=== PATIENT | male | born 1970 | race Caucasian/White ===

== ENCOUNTER 2019-11-13 07:11 | Outpatient (CLI) | payer BC, OTHER ==
[2019-11-13 16:08] LABS: #Basophils 0.1 thou/uL (0.0-0.2); #Eosinphils 0.1 thou/uL (0.0-0.7); #Lymphocytes 1.6 thou/uL (1.20-3.40); #Monocytes 0.5 thou/uL (0.11-0.59); #Neutrophils 5.8 thou/uL (1.40-6.50); %Basophils 0.6 % (0.0-1.0); %Eosinophils 1.3 % (0.0-10.0); %Lymphocytes 19.7 % (21.0-51.0); %Monocytes 5.9 % (0.0-10.0); %Neutrophils 72.5 % (42.0-75.0); Hemoglobin 16.5 g/dL (14.0-18.0); Mean Corpuscular HGB CONC 34.6 g/dL (32.0-36.0); Mean Corpuscular Volume 92.7 fL (78.0-98.0); Mean Platelet Volume 7.1 fL (7.4-10.4); Platelet Count 315 thou/uL (130-400); RBC Distribution Width 11.5 % (11.5-14.5); Red Blood Cell (RBC) Count 5.15 mill/uL (4.70-6.10); White Blood Cell (WBC) Count 8.1 thou/uL (4.8-10.8)
[2019-11-13 16:23] LABS: Anion Gap 14 mmol/L (10-20); BUN (Urea Nitrogen) 17 mg/dL (8.9-20.6); Calc. Creatinine Clearance 0 mL/min (70-130); Calcium 9.7 mg/dL (7.8-10.44); Carbon Dioxide 27 mmol/L (22-29); Chloride 104 mmol/L (98-107); Estimated GFR-MDRD 90; Glucose 84 mg/dL (70-105); Potassium 3.9 mmol/L (3.5-5.1); Sodium 141 mmol/L (136-145)
[2019-11-14 14:54] LABS: SARS-CoV-2 MS2 Positive; SARS-CoV-2 N Gene Negative; SARS-CoV-2 S Gene Negative; SARS-CoV-2 by NAA Not Detected (NotDetected); SARS-CoV-2 orf1ab Negative
== END 2019-11-13 07:12 | disposition home or self-care (01) ==
LOC: LABBT 07:11
PROVIDERS: ATTEND Surgery
DX: Z01.812 Encounter for preprocedural laboratory examination (principal); Z20.828 Contact with and (suspected) exposure to other viral communicable diseases; K60.3 Anal fistula
CPT/HCPCS: 80048; 85025; 87635; U0003

== ENCOUNTER 2019-11-17 06:12 | Day surgery (SDC) | payer BC ==
[2019-11-16 09:33] VITALS: BMI 27.2
[2019-11-17] MEDS ORDERED: Bupivacaine/Epinephrine 0.25% 30 ML VIAL ONE (06:43)
[2019-11-17] MEDS ORDERED: Lidocaine 2% Jelly 5 ML TUBE ONE (06:48)
[2019-11-17] MEDS ORDERED: Fentanyl 100 MCG/2 ML VIAL ONE ×2 (06:58→08:43)
[2019-11-17] MEDS ORDERED: Famotidine/PF 20 mg/2ml Vial ONE (07:34)
--- NOTE | 2019-11-17 08:47 | OP ---
DATE OF PROCEDURE: 11/17/2019 PREOPERATIVE DIAGNOSES: 1. [id number]. 2. Skin lesion, left buttock. POSTOPERATIVE DIAGNOSES: 1. [id number]. 2. Skin lesion, left buttock. PROCEDURES PERFORMED: 1. Fistulotomy with seton placement. 2. Excision of 0.5 cm skin lesion, left buttock. ANESTHESIA: General. ESTIMATED BLOOD LOSS: Minimal. COMPLICATIONS: None. FINDINGS: Transsphincteric fistula. DESCRIPTION OF PROCEDURE: The patient was taken to the operating room and laid supine on the operating room table. After general anesthetic was obtained, he was placed in lithotomy position. External opening was probed, this communicated with an internal opening above the sphincter. Because it was transsphincteric, it was cut to the level of the sphincter and a seton. Silk suture was wrapped around and tied and left in place. There was a lesion to the left buttock that was removed and sent to [facility] for final diagnosis. The wound was closed using 3-0 Vicryl, Dermabond. The patient was sent to Recovery in stable condition. All instrument counts, needle counts, and lap counts were correct. Job ID: [id number]
[2019-11-17] MEDS ORDERED: HYDROcodone/Acetaminophen 5/325 mg Tablet ONE (09:35)
[2019-11-17] MEDS ORDERED: Lidocaine 1% PF 5 ML VIAL ONE (11:28)
[2019-11-17] MEDS ORDERED: Dexamethasone 20 MG/5 ML VIAL ONE (11:28)
[2019-11-17] MEDS ORDERED: PROPOFOL 200 MG/20 ML VIAL ONE (11:28)
[2019-11-17] MEDS ORDERED: Ondansetron PF 4 MG/2 ML Vial ONE (11:28)
[2019-11-17] MEDS ORDERED: Ketorolac Tromethamine 30 MG/ML VIAL ONE (11:28)
== END 2019-11-17 10:50 | disposition home or self-care (01) ==
LOC: SDC 06:12
PROVIDERS: ATTEND Surgery
PROC: 0HB8XZZ Excision of Buttock Skin, External Approach (ICD-10-PCS; principal; 2019-11-17)
PROC: 0DBQ3ZZ Excision of Anus, Percutaneous Approach (ICD-10-PCS; principal; 2019-11-17)
DX: K60.3 Anal fistula (principal); D23.5 Other benign neoplasm of skin of trunk; I10 Essential (primary) hypertension; Z79.899 Other long term (current) drug therapy; Z87.891 Personal history of nicotine dependence; Z88.5 Allergy status to narcotic agent
CPT/HCPCS: 88305; J0690; J1100; J1885; J2405; J2704; J3010; S0028

== ENCOUNTER 2024-03-13 06:13 | Day surgery (SDC) | payer BC ==
[2024-03-12 10:53] VITALS: BMI 29.9
[2024-03-13] MEDS ORDERED: CEFAZOLIN 2 GM VIAL ONE (06:57)
[2024-03-13] MEDS ORDERED: Lidocaine 1% PF 5 ML VIAL ONE (06:57)
[2024-03-13] MEDS ORDERED: Vancomycin HCl 500 MG VIAL ONE (06:57)
[2024-03-13] MEDS ORDERED: Rocuronium Bromide 10 MG/ML (10ML VIAL) ONE (06:57)
[2024-03-13] MEDS ORDERED: fentaNYL PF 100 MCG/2 ML SYRINGE ONE ×2 (06:57→08:16)
[2024-03-13] MEDS ORDERED: Midazolam HCl 2 mg/2 ml Vial ONE (06:57)
[2024-03-13] MEDS ORDERED: PROPOFOL 20 ML ONE (06:57)
[2024-03-13] MEDS ORDERED: Vancomycin 1 GM/200 ML (FROZEN) BAG ONE (06:58)
[2024-03-13] MEDS ORDERED: Vancomycin (BATCH) 300 ML ONE (07:10)
[2024-03-13] MEDS ORDERED: Ondansetron PF 4 MG/2 ML Vial IVP PRN (07:45)
[2024-03-13] MEDS ORDERED: HYDROcodone/Acetaminophen 10/325 mg Tablet PO PRN ×2 (07:45)
[2024-03-13] MEDS ORDERED: Promethazine HCl 25 MG/ML VIAL IM PRN (07:45)
[2024-03-13] MEDS ORDERED: Zolpidem Tartrate 5 MG TAB PO PRN (07:45)
[2024-03-13] MEDS ORDERED: Ropivacaine 0.2% 550 ML 550 ML NERVE BLCK SCH (07:45)
[2024-03-13] MEDS ORDERED: Ropivacaine 0.5% HCl/PF (150 MG/30 ML VIAL) ONE (09:31)
[2024-03-13] MEDS ORDERED: Lidocaine 1% (PF) 30 ML VIAL ONE (09:31)
[2024-03-13] MEDS ORDERED: Dexamethasone 20 MG/5 ML VIAL ONE (10:16)
[2024-03-13] MEDS ORDERED: Ondansetron PF 4 MG/2 ML Vial ONE (10:16)
[2024-03-13] MEDS ORDERED: PHENYLEPHRINE-NS 100 MCG/ML 10 ML SYRINGE ONE (10:16)
[2024-03-13] MEDS ORDERED: SUGAMMADEX SODIUM 200 MG/2 ML VIAL ONE (10:17)
[2024-03-13] MEDS ORDERED: fentaNYL 50 mcg/mL 1 mL Vial ONE ×2 (11:06→11:16)
[2024-03-13] MEDS ORDERED: HYDROmorphone 0.5 MG/0.5 ML SYRINGE ONE ×2 (11:16→11:28)
[2024-03-13] MEDS ORDERED: Ketorolac Tromethamine 30 MG (1 mL) VIAL IVP SCH (12:00)
[2024-03-13] MEDS ORDERED: HYDROcodone/Acetaminophen 5/325 mg Tablet ONE (12:07)
== END 2024-03-13 14:01 | disposition home or self-care (01) ==
LOC: SDC 06:13
PROVIDERS: ATTEND Orthopaedic Surgery
PROC: 0LM10ZZ Reattachment of Right Shoulder Tendon, Open Approach (ICD-10-PCS; principal; 2024-03-13)
PROC: 0LS30ZZ Reposition Right Upper Arm Tendon, Open Approach (ICD-10-PCS; principal; 2024-03-13)
PROC: 3E0T3BZ Introduction of Anesthetic Agent into Peripheral Nerves and Plexi, Percutaneous Approach (ICD-10-PCS; principal; 2024-03-13)
PROC: 0RNJ0ZZ Release Right Shoulder Joint, Open Approach (ICD-10-PCS; principal; 2024-03-13)
DX: M75.101 Unspecified rotator cuff tear or rupture of right shoulder, not specified as traumatic (principal); I10 Essential (primary) hypertension; Z87.891 Personal history of nicotine dependence; Z90.49 Acquired absence of other specified parts of digestive tract; Z90.89 Acquired absence of other organs; Z98.890 Other specified postprocedural states; Z88.8 Allergy status to other drugs, medicaments and biological substances; Z79.51 Long term (current) use of inhaled steroids; Z79.1 Long term (current) use of non-steroidal anti-inflammatories (NSAID); Z79.899 Other long term (current) drug therapy
CPT/HCPCS: A4306; A6223; C1713; J1100; J1171; J2250; J2405; J2704; J2795; J3010; J3370; Q4125